=== PATIENT | female | born 1965 | race Caucasian/White ===

== ENCOUNTER 2022-06-15 10:33 | Emergency (ER) | payer MEDICAID ==
[~2022-06-15] VITALS: Ht 149.9 cm; Wt 70.0 kg
[~2022-06-15 10:33] MED LIST: ASPI-1497 PO; BENA1TAB18 PO; DILT240C92 PO; INSU10VI2 SQ; METF-414 PO; OMEP40CA20 PO; PRAV40TA58 PO; SITA50TA3 PO
[2022-06-15] MEDS ORDERED: KETOROLAC 15MG/ML VIAL IM ONE (13:15)
[2022-06-15 13:31] VITALS: BP 112/52
== END 2022-06-15 15:21 | disposition home or self-care (01) ==
LOC: ER 11:20
DX: M25.512 Pain in left shoulder (principal); M25.511 Pain in right shoulder; M25.551 Pain in right hip; E11.9 Type 2 diabetes mellitus without complications; I10 Essential (primary) hypertension; E78.00 Pure hypercholesterolemia, unspecified; Z79.4 Long term (current) use of insulin; Z79.899 Other long term (current) drug therapy
CPT/HCPCS: 73030; 73522; 81025; 96372; 99284; J1885